=== PATIENT | female | born 1975 | race Caucasian/White ===

== ENCOUNTER 2018-01-02 11:54 | Outpatient (CLI) | payer BC | END 2018-01-02 11:55 | disposition home or self-care (01) | LOC: BICMAMMO 11:54 | DX: Z12.31 Encounter for screening mammogram for malignant neoplasm of breast (principal); Z80.3 Family history of malignant neoplasm of breast | CPT/HCPCS: 77063; 77067 ==

== ENCOUNTER 2023-01-22 17:30 | Outpatient (CLI) | payer BC | END 2023-01-22 17:31 | disposition home or self-care (01) | LOC: SLEEPLAB 17:30 | PROVIDERS: ATTEND Family Medicine | DX: G47.33 Obstructive sleep apnea (adult) (pediatric) (principal); K21.9 Gastro-esophageal reflux disease without esophagitis; R06.83 Snoring; R53.83 Other fatigue | CPT/HCPCS: 95800 ==